=== PATIENT | female | born 1940 | race Caucasian/White ===

== ENCOUNTER 2016-07-12 12:40 | Emergency (ER) | payer MEDICARE, BC ==
[~2016-07-12] VITALS: Ht 165.1 cm; Wt 72.7 kg
[~2016-07-12 12:40] MED LIST: AGGRENOX ER 251 CER PO; ARICEPT10 MG PO; ASPIRIN 32325 MG/TAB PO; CO ENZYME Q-1050 MG PO; CO Q-1010 MG; COENZYME Q-1050 MG PO; CRESTOR40 MG PO; DIPYRIDAMOLE25 MG PO; FLAGYL500 MG PO; LEVAQUIN 750MG750 M1 PO; LEVOXYL0.1 MG PO; LIPITOR20 MG PO; MELATONIN3 M1 PO; MULTIPLE VITAMI1 CAP PO; NORCO 325 MG-51 TAB PO; OYSTER CALCIUM500 M1 PO; OYSTER SHELL C500 M4 PO; PRILOSEC 20MG20 MG PO; PRINIVIL40 MG PO; VITAMIN B COMPL1 T16 PO; ZOCOR 40MG40 MG PO
[2016-07-12] MEDS ORDERED: SYNTHROID0.1 MG/TAB PO (12:53)
[2016-07-12] MEDS ORDERED: PRILOSEC 20MG20 MG PO (12:53)
[2016-07-12] MEDS ORDERED: AGGRENOX ER 251 CER PO (12:53)
[2016-07-12] MEDS ORDERED: PRINIVIL40 MG PO (12:54)
[2016-07-12] MEDS ORDERED: ARICEPT10 MG PO (12:54)
[2016-07-12 13:14] LABS: BASO % 0.6 % (0.0-2.0); EOS # 0.1 (0.0-0.7); EOS % 1.9 % (0-4.0); GRAN # 4.2 (1.4-6.5); GRAN % 78.8 % (42.2-75.2); HEMOGLOBIN 12.8 g/dl (12.5-16.0); LYMPH # 0.6 (1.2-3.4); LYMPH % 10.7 % (20.0-51.0); MEAN CELL VOLUME 86 fl (80.0-100.0); MEAN CORPUSCULAR HEMOGLOBIN 31 pg (27.0-31.0); MEAN CORPUSCULAR HGB CONC 36 g/dl (33.0-37.0); MEAN PLATELET VOLUME 10.2 fl (7.4-10.4); MONO # 0.4 (0.1-0.6); MONO % 6.7 % (1.7-9.3); PLATELET COUNT 380 K/mm3 (130-400); RED BLOOD COUNT 4.12 M/mm3 (4.10-5.30); REDCELL DISTRIBUTION WIDTH-CV 15.7 % (11.5-14.5); WHITE BLOOD COUNT 5.4 K/mm3 (4.8-10.8)
[2016-07-12 13:23] LABS: HEMATOCRIT 35.6 % (37.0-47.0)
[2016-07-12 13:36] LABS: PH 7 (5-8); SQUAMOUS EPITHELIAL None Seen /hpf; URINE APPEARANCE Clear; URINE BACTERIA None Seen /hpf; URINE BILIRUBIN Negative (NEGATIVE); URINE BLOOD Negative (NEGATIVE); URINE COLOR Straw; URINE GLUCOSE Negative (NEGATIVE); URINE KETONE Negative (NEGATIVE); URINE RBC 0-2 /hpf; URINE UROBILINOGEN Negative (NEGATIVE); URINE WBC None Seen /hpf
[2016-07-12 13:53] LABS: ADJUSTED CALCIUM 8.6 mg/dL (8.4-10.2); ALBUMIN 4.5 gm/dL (3.5-5.0); CREATININE, serum 0.65 mg/dL (0.52-1.25); POTASSIUM 3.9 mmol/L (3.4-5.0); TOTAL PROTEIN 6.6 gm/dL (6.4-8.2)
[2016-07-12 14:21] VITALS: TEMP 98.6
[2016-07-12 14:57] VITALS: BP 131/67; PULSE 67
== END 2016-07-12 14:59 | disposition home or self-care (01) ==
LOC: COL.ER 12:40
PROVIDERS: Emergency Medicine
DX: E86.0 Dehydration (principal); R11.10 Vomiting, unspecified; R19.7 Diarrhea, unspecified; I10 Essential (primary) hypertension; Z85.820 Personal history of malignant melanoma of skin; F03.90 Unspecified dementia, unspecified severity, without behavioral disturbance, psychotic disturbance, mood disturbance, and anxiety
CPT/HCPCS: J2405; J7030

== ENCOUNTER → 2016-07-14 | Outpatient (CLI) | payer MEDICARE, BC ==
[~2016-07-14] MED LIST changes: +NORVASC2.5 MG PO; +SYNTHROID0.1 MG/TAB PO
== END ==
LOC: COL.CARD 06:53
DX: R55 Syncope and collapse (principal)

== ENCOUNTER 2016-08-09 06:18 | Emergency (ER) | payer MEDICARE, BC ==
[~2016-08-09] VITALS: Ht 165.1 cm; Wt 75.0 kg
[~2016-08-09 06:18] MED LIST changes: -NORVASC2.5 MG PO
[2016-08-09 06:27] VITALS: TEMP 96.7
[2016-08-09 07:24] LABS: HEMATOCRIT 37.1 % (37.0-47.0); HEMOGLOBIN 13.3 g/dl (12.5-16.0); MEAN CELL VOLUME 85 fl (80.0-100.0); MEAN CORPUSCULAR HEMOGLOBIN 31 pg (27.0-31.0); MEAN CORPUSCULAR HGB CONC 36 g/dl (33.0-37.0); MEAN PLATELET VOLUME 10.8 fl (7.4-10.4); PLATELET COUNT 356 K/mm3 (130-400); RED BLOOD COUNT 4.35 M/mm3 (4.10-5.30); REDCELL DISTRIBUTION WIDTH-CV 15.6 % (11.5-14.5); WHITE BLOOD COUNT 5.5 K/mm3 (4.8-10.8)
[2016-08-09 07:25] LABS: INR 1.1 (0.8-3.0); PROTHROMBIN TIME 12.4 SECONDS (9.7-12.8)
[2016-08-09 07:28] LABS: ADD PATHOLOGY DIFF REVIEW NO; PARTIAL THROMBOPLASTIN TIME 27.7 SECONDS (26.0-37.0)
[2016-08-09 07:37] LABS: ADJUSTED CALCIUM 8.4 mg/dL (8.4-10.2); ALANINE AMINOTRANSFERASE 28 U/L (9-52); ALBUMIN 4.6 gm/dL (3.5-5.0); ALKALINE PHOSPHATASE 37 U/L (50-136); ANION GAP 14 mmol/L (7-16); BILIRUBIN,TOTAL 0.8 mg/dL (0.0-1.0); BLOOD UREA NITROGEN 14 mg/dL (7-17); CALCIUM 8.9 mg/dL (8.4-10.2); CARBON DIOXIDE 21 mmol/L (22-30); CHLORIDE 93 mmol/L (98-107); CREATININE, serum 0.66 mg/dL (0.52-1.25); GLUCOSE 130 mg/dL (74-106); POTASSIUM 3.4 mmol/L (3.4-5.0); SODIUM 128 mmol/L (137-145); TOTAL PROTEIN 6.5 gm/dL (6.4-8.2)
[2016-08-09 07:55] LABS: TROPONIN-I < 0.012 ng/mL (0.000-0.034)
[2016-08-09 08:02] LABS: PH 5 (5-8); SQUAMOUS EPITHELIAL 0-2 /hpf; URINE APPEARANCE Hazy; URINE BACTERIA None Seen /hpf; URINE BILIRUBIN Negative (NEGATIVE); URINE BLOOD Negative (NEGATIVE); URINE COLOR Amber; URINE GLUCOSE Negative (NEGATIVE); URINE KETONE Negative (NEGATIVE); URINE RBC 0-2 /hpf; URINE UROBILINOGEN Negative (NEGATIVE)
[2016-08-09 08:19] LABS: BAND 16 % (0-10); EOSINOPHIL 3 % (0-4); NEUTROPHILS 62 % (42.0-75.2); TOTAL CELLS COUNTED 100
[2016-08-09 08:20] LABS: PLATELET ESTIMATE NORMAL (NORMAL)
[2016-08-09 10:29] VITALS: BP 132/71; PULSE 72
== END 2016-08-09 10:32 | disposition short-term general hospital (02) ==
LOC: COL.ER 06:18
PROVIDERS: Emergency Medicine
DX: S06.5X0A Traumatic subdural hemorrhage without loss of consciousness, initial encounter (principal); R55 Syncope and collapse; I10 Essential (primary) hypertension; S00.31XA Abrasion of nose, initial encounter; W18.30XA Fall on same level, unspecified, initial encounter; Y92.009 Unspecified place in unspecified non-institutional (private) residence as the place of occurrence of the external cause; Z86.73 Personal history of transient ischemic attack (TIA), and cerebral infarction without residual deficits
CPT/HCPCS: J1953; J2405; J7030

== ENCOUNTER 2016-08-28 16:23 | Emergency (ER) | payer MEDICARE, BC ==
[~2016-08-28] VITALS: Ht 165.1 cm; Wt 72.7 kg
[2016-08-28 16:25] VITALS: TEMP 99.4
[2016-08-28 17:27] VITALS: BP 138/69; PULSE 84
[2016-08-28] MEDS ORDERED: NORVASC2.5 MG PO ×2 (17:34→17:55)
== END 2016-08-28 17:53 | disposition home or self-care (01) ==
LOC: COL.ER 16:23
DX: I62.00 Nontraumatic subdural hemorrhage, unspecified (principal); I10 Essential (primary) hypertension; M19.90 Unspecified osteoarthritis, unspecified site; Z85.820 Personal history of malignant melanoma of skin; Z86.73 Personal history of transient ischemic attack (TIA), and cerebral infarction without residual deficits; Z98.890 Other specified postprocedural states

== ENCOUNTER → 2016-12-05 | Outpatient (CLI) | payer MEDICARE, BC ==
[~2016-12-05] MED LIST changes: +NORVASC2.5 MG PO
== END ==
LOC: WCC 08:50
DX: L97.819 Non-pressure chronic ulcer of other part of right lower leg with unspecified severity (principal)
CPT/HCPCS: 17717; A6212; G0463

== ENCOUNTER → 2016-12-05 | Outpatient (CLI) | payer MEDICARE, BC | LOC: ZCOL.LAB 15:14 | DX: T63.301A Toxic effect of unspecified spider venom, accidental (unintentional), initial encounter (principal) ==

== ENCOUNTER → 2016-12-13 | Outpatient (CLI) | payer MEDICARE, BC | LOC: WCC 12:32 | DX: L97.819 Non-pressure chronic ulcer of other part of right lower leg with unspecified severity (principal); B99.9 Unspecified infectious disease | CPT/HCPCS: 13973; 17717; A6199; A6212; G0463 ==

== ENCOUNTER → 2017-05-03 | Outpatient (CLI) | payer MEDICARE, BC | LOC: COL.CARD 12:30 | DX: R55 Syncope and collapse (principal) ==

== ENCOUNTER → 2017-05-09 | Outpatient (CLI) | payer MEDICARE, BC | LOC: COL.RAD 14:31 | DX: I62.03 Nontraumatic chronic subdural hemorrhage (principal); G93.89 Other specified disorders of brain ==

== ENCOUNTER → 2017-06-15 | Outpatient (CLI) | payer MEDICARE, BC | LOC: COL.VAS 09:03 | DX: I65.23 Occlusion and stenosis of bilateral carotid arteries (principal); R16.2 Hepatomegaly with splenomegaly, not elsewhere classified; R18.8 Other ascites; K76.9 Liver disease, unspecified; K82.9 Disease of gallbladder, unspecified ==

== ENCOUNTER 2017-06-17 12:46 | Inpatient (IN) | payer MEDICARE, BC ==
[~2017-06-17] VITALS: Ht 165.1 cm; Wt 73.8 kg
[2017-06-17] MEDS ORDERED: ALDACTONE 25MG25 M1 PO (13:10)
[2017-06-17] MEDS ORDERED: ARICEPT10 MG PO (13:12)
[2017-06-17] MEDS ORDERED: KEPPRA 500MG500 MG PO (13:24)
[2017-06-17] MEDS ORDERED: NORVASC 5MG5 MG/TAB PO (13:25)
[2017-06-17 13:33] LABS: BASO # 0.2 (0.0-0.2); BASO % 1.4 % (0.0-2.0); EOS # 0.2 (0.0-0.7); EOS % 1.7 % (0-4.0); GRAN # 8.5 (1.4-6.5); GRAN % 78.5 % (42.2-75.2); HEMOGLOBIN 17.8 g/dl (12.5-16.0); LYMPH # 1.1 (1.2-3.4); LYMPH % 9.7 % (20.0-51.0); MEAN CELL VOLUME 82 fl (80.0-100.0); MEAN CORPUSCULAR HEMOGLOBIN 26 pg (27.0-31.0); MEAN CORPUSCULAR HGB CONC 32 g/dl (33.0-37.0); MONO # 0.9 (0.1-0.6); MONO % 7.8 % (1.7-9.3); PLATELET COUNT 173 K/mm3 (130-400); RED BLOOD COUNT 6.81 M/mm3 (4.10-5.30); REDCELL DISTRIBUTION WIDTH-CV 21.7 % (11.5-14.5)
[2017-06-17 13:36] LABS: HEMATOCRIT 55.9 % (37.0-47.0)
[2017-06-17 13:38] LABS: INR 1.3 (0.8-3.0); PROTHROMBIN TIME 14.8 SECONDS (9.7-12.8)
[2017-06-17 13:43] LABS: ALBUMIN 3.8 gm/dL (3.5-5.0); BILIRUBIN,TOTAL 2.2 mg/dL (0.0-1.0); CALCIUM 8.9 mg/dL (8.4-10.2); CREATININE, serum 0.59 mg/dL (0.52-1.25); POTASSIUM 3.4 mmol/L (3.4-5.0); TOTAL PROTEIN 6.2 gm/dL (6.4-8.2)
[2017-06-17 13:57] LABS: TROPONIN-I 0.057 ng/mL (0.000-0.034)
[2017-06-17 15:35] VITALS: BP 135/80; PULSE 100; TEMP 98.1
[2017-06-17 19:23] VITALS: BP 136/81; PULSE 105; TEMP 98.1
[2017-06-17 23:16] VITALS: BP 143/76; PULSE 100; TEMP 98.5
[2017-06-18 04:13] VITALS: BP 150/72; PULSE 91; TEMP 98.4
[2017-06-18 07:02] LABS: BASO # 0.1 (0.0-0.2); BASO % 0.9 % (0.0-2.0); EOS # 0.1 (0.0-0.7); EOS % 1.4 % (0-4.0); GRAN # 6.3 (1.4-6.5); HEMATOCRIT 49.2 % (37.0-47.0); LYMPH % 12.2 % (20.0-51.0); MEAN CELL VOLUME 80 fl (80.0-100.0); MEAN CORPUSCULAR HGB CONC 32 g/dl (33.0-37.0); MONO # 0.6 (0.1-0.6); MONO % 6.8 % (1.7-9.3); PLATELET COUNT 152 K/mm3 (130-400); RED BLOOD COUNT 6.15 M/mm3 (4.10-5.30); REDCELL DISTRIBUTION WIDTH-CV 21.2 % (11.5-14.5)
[2017-06-18 07:06] LABS: HEMOGLOBIN 15.6 g/dl (12.5-16.0); MEAN CORPUSCULAR HEMOGLOBIN 25 pg (27.0-31.0)
[2017-06-18 07:07] LABS: BILIRUBIN,TOTAL 1.5 mg/dL (0.0-1.0); CALCIUM 8.3 mg/dL (8.4-10.2); CREATININE, serum 0.62 mg/dL (0.52-1.25)
[2017-06-18 07:18] VITALS: BP 143/79; PULSE 57; TEMP 98.5
[2017-06-18] MEDS ORDERED: NAMENDA 10MG TA10 MG PO (11:51)
[2017-06-18 11:55] VITALS: BP 132/76; PULSE 91; TEMP 98.2
[2017-06-18 15:17] VITALS: BP 137/81; PULSE 93; TEMP 98.5
[2017-06-18 18:01] LABS: INR 1.4 (0.8-3.0); PROTHROMBIN TIME 16.3 SECONDS (9.7-12.8)
[2017-06-18 19:01] LABS: HEPATITIS A ANTIBODY-IGM Negative (()); HEPATITIS B SURFACE ANTIBODY <2.0 (()); HEPATITIS B SURFACE ANTIGEN Negative (())
[2017-06-18 19:18] VITALS: BP 145/79; PULSE 96; TEMP 98.4
[2017-06-18 23:11] VITALS: BP 141/95; PULSE 94; TEMP 98.6
[2017-06-19 03:43] VITALS: BP 149/78; PULSE 92; TEMP 98.3
[2017-06-19 06:09] LABS: BASO # 0.1 (0.0-0.2); BASO % 0.8 % (0.0-2.0); EOS # 0.1 (0.0-0.7); EOS % 1.5 % (0-4.0); GRAN # 6.7 (1.4-6.5); GRAN % 77.5 % (42.2-75.2); HEMATOCRIT 49.5 % (37.0-47.0); HEMOGLOBIN 15.8 g/dl (12.5-16.0); LYMPH # 1.1 (1.2-3.4); LYMPH % 12.5 % (20.0-51.0); MEAN CELL VOLUME 81 fl (80.0-100.0); MEAN CORPUSCULAR HEMOGLOBIN 26 pg (27.0-31.0); MEAN CORPUSCULAR HGB CONC 32 g/dl (33.0-37.0); MONO # 0.6 (0.1-0.6); PLATELET COUNT 182 K/mm3 (130-400); RED BLOOD COUNT 6.08 M/mm3 (4.10-5.30); REDCELL DISTRIBUTION WIDTH-CV 21.7 % (11.5-14.5)
[2017-06-19 06:12] LABS: ALBUMIN 2.9 gm/dL (3.5-5.0); BILIRUBIN,TOTAL 1.5 mg/dL (0.0-1.0); CALCIUM 8.2 mg/dL (8.4-10.2); CREATININE, serum 0.64 mg/dL (0.52-1.25); POTASSIUM 3.6 mmol/L (3.4-5.0); TOTAL PROTEIN 4.8 gm/dL (6.4-8.2)
[2017-06-19 07:19] VITALS: BP 149/78; PULSE 81; TEMP 98.5
[2017-06-19 10:02] LABS: PERITONEAL -POLYMORPHONUCLEAR 13.8 % (0-25); PERITONEAL FLUID RBC 0 /mm3 (0-0)
[2017-06-19 11:16] VITALS: BP 128/68; PULSE 91; TEMP 98.6
[2017-06-19 15:35] VITALS: BP 124/75; PULSE 94; TEMP 98.2
[2017-06-19 19:17] VITALS: BP 141/87; PULSE 99; TEMP 98.2
[2017-06-20 00:19] VITALS: BP 129/72; PULSE 91; TEMP 98.7
[2017-06-20 03:45] VITALS: BP 125/76; PULSE 88; TEMP 98.5
[2017-06-20 06:17] LABS: BASO # 0.1 (0.0-0.2); EOS # 0.2 (0.0-0.7); EOS % 1.5 % (0-4.0); GRAN # 7.9 (1.4-6.5); GRAN % 79.5 % (42.2-75.2); HEMATOCRIT 50.4 % (37.0-47.0); HEMOGLOBIN 16.4 g/dl (12.5-16.0); LYMPH % 10.4 % (20.0-51.0); MEAN CELL VOLUME 80 fl (80.0-100.0); MEAN CORPUSCULAR HEMOGLOBIN 26 pg (27.0-31.0); MEAN CORPUSCULAR HGB CONC 33 g/dl (33.0-37.0); MONO # 0.7 (0.1-0.6); MONO % 6.7 % (1.7-9.3); PLATELET COUNT 142 K/mm3 (130-400); RED BLOOD COUNT 6.29 M/mm3 (4.10-5.30); REDCELL DISTRIBUTION WIDTH-CV 21.7 % (11.5-14.5)
[2017-06-20 06:26] LABS: CALCIUM 8.2 mg/dL (8.4-10.2); CREATININE, serum 0.77 mg/dL (0.52-1.25); POTASSIUM 3.6 mmol/L (3.4-5.0)
[2017-06-20 07:30] VITALS: BP 132/80; PULSE 93; TEMP 98.3
[2017-06-20] MEDS ORDERED: COREG 3.123.125 MG/T PO (09:23)
[2017-06-20] MEDS ORDERED: LASIX 20MG TABL20 MG PO (09:24)
== END 2017-06-20 11:22 | disposition home or self-care (01) | DRG 433 ==
LOC: COL.ER 12:46 → MEDICAL 14:50
PROVIDERS: Emergency Medicine; Internal Medicine; Internal Medicine Gastroenterology; Physician Assistant
PROC: 0W9G3ZZ Drainage of Peritoneal Cavity, Percutaneous Approach (ICD-10-PCS; principal; 2017-06-19)
DX: K70.31 Alcoholic cirrhosis of liver with ascites (principal); K76.6 Portal hypertension; F03.90 Unspecified dementia, unspecified severity, without behavioral disturbance, psychotic disturbance, mood disturbance, and anxiety; E87.6 Hypokalemia; E03.9 Hypothyroidism, unspecified; E78.5 Hyperlipidemia, unspecified; Z86.73 Personal history of transient ischemic attack (TIA), and cerebral infarction without residual deficits
CPT/HCPCS: OP; 87522; 99223-AI; 99232-AI; 99233-AI; J1940; Q9967

== ENCOUNTER 2017-07-04 11:35 | Observation (INO) | payer MEDICARE, BC ==
[~2017-07-04] VITALS: Ht 165.1 cm; Wt 66.5 kg
[~2017-07-04 11:35] MED LIST changes: +ALDACTONE 25MG25 M1 PO; +COREG 3.123.125 MG/T PO; +KEPPRA 500MG500 MG PO; +LASIX 20MG TABL20 MG PO; +NAMENDA 10MG TA10 MG PO; +NORVASC 5MG5 MG/TAB PO
[2017-07-04 12:27] VITALS: BP 125/85; PULSE 80
[2017-07-04 12:36] LABS: BASO # 0.1 (0.0-0.2); BASO % 1.1 % (0.0-2.0); EOS # 0.2 (0.0-0.7); EOS % 2.2 % (0-4.0); GRAN # 8.7 (1.4-6.5); GRAN % 80.5 % (42.2-75.2); HEMOGLOBIN 17.3 g/dl (12.5-16.0); LYMPH # 1.1 (1.2-3.4); LYMPH % 9.9 % (20.0-51.0); MEAN CELL VOLUME 79 fl (80.0-100.0); MEAN CORPUSCULAR HEMOGLOBIN 25 pg (27.0-31.0); MEAN CORPUSCULAR HGB CONC 32 g/dl (33.0-37.0); MONO # 0.6 (0.1-0.6); MONO % 5.9 % (1.7-9.3); PLATELET COUNT 238 K/mm3 (130-400); RED BLOOD COUNT 6.86 M/mm3 (4.10-5.30); REDCELL DISTRIBUTION WIDTH-CV 21.4 % (11.5-14.5)
[2017-07-04 12:38] LABS: HEMATOCRIT 54.5 % (37.0-47.0)
[2017-07-04 12:45] LABS: ALANINE AMINOTRANSFERASE 34 U/L (9-52); ALBUMIN 3.8 gm/dL (3.5-5.0); ALKALINE PHOSPHATASE 62 U/L (50-136); ANION GAP 14 mmol/L (7-16); AST,SGOT 36 U/L (15-37); BILIRUBIN,TOTAL 0.9 mg/dL (0.0-1.0); BLOOD UREA NITROGEN 13 mg/dL (7-17); CALCIUM 9.2 mg/dL (8.4-10.2); CARBON DIOXIDE 25 mmol/L (22-30); CHLORIDE 102 mmol/L (98-107); CREATININE, serum 0.77 mg/dL (0.52-1.25); GLUCOSE 101 mg/dL (74-106); MAGNESIUM 2.2 mg/dL (1.6-2.3); SODIUM 141 mmol/L (137-145); TOTAL PROTEIN 6.3 gm/dL (6.4-8.2)
[2017-07-04 12:49] LABS: INR 1.2 (0.8-3.0); PROTHROMBIN TIME 14.1 SECONDS (9.7-12.8)
[2017-07-04 12:52] LABS: PARTIAL THROMBOPLASTIN TIME 45.5 SECONDS (26.0-37.0)
[2017-07-04 13:02] LABS: ALCOHOL(ethanol),MEDICAL < 10 mg/dL
[2017-07-04 13:03] LABS: TROPONIN-I 0.321 ng/mL (0.000-0.034)
[2017-07-04] MEDS ORDERED: NORVASC2.5 MG PO (13:58)
[2017-07-04] MEDS ORDERED: LEVOXYL0.1 MG PO (13:59)
[2017-07-04] MEDS ORDERED: KEPPRA 500MG500 MG PO (13:59)
[2017-07-04] MEDS ORDERED: PRINIVIL40 MG PO (13:59)
[2017-07-04] MEDS ORDERED: NAMENDA 10MG TA10 MG PO (14:00)
[2017-07-04] MEDS ORDERED: PRILOSEC 20MG20 MG PO (14:00)
[2017-07-04] MEDS ORDERED: ALDACTONE 25MG25 M1 PO (14:00)
[2017-07-04] MEDS ORDERED: COREG 3.123.125 MG/T PO (14:00)
[2017-07-04] MEDS ORDERED: LASIX 20MG TABL20 MG PO (14:01)
[2017-07-04 18:48] VITALS: BP 139/79; PULSE 70; TEMP 98.5
[2017-07-04 19:10] VITALS: BP 144/79; PULSE 81; TEMP 98
[2017-07-04 23:20] VITALS: BP 120/68; PULSE 71; TEMP 98.1
[2017-07-05 03:43] VITALS: BP 137/75; PULSE 67; TEMP 97.6
[2017-07-05 08:55] VITALS: BP 131/69; PULSE 77; TEMP 98
[2017-07-05] MEDS ORDERED: COREG 3.123.125 MG/T PO (08:57)
[2017-07-05] MEDS ORDERED: ASPIRIN 81M81 MG/TA2 PO (08:57)
== END 2017-07-05 09:55 | disposition home or self-care (01) ==
LOC: COL.ER 11:35 → MEDICAL 13:47
PROVIDERS: Emergency Medicine
DX: K70.31 Alcoholic cirrhosis of liver with ascites (principal); K92.1 Melena; R63.0 Anorexia; I08.3 Combined rheumatic disorders of mitral, aortic and tricuspid valves; I11.0 Hypertensive heart disease with heart failure; I50.30 Unspecified diastolic (congestive) heart failure; R53.81 Other malaise; F03.90 Unspecified dementia, unspecified severity, without behavioral disturbance, psychotic disturbance, mood disturbance, and anxiety; E03.9 Hypothyroidism, unspecified; E78.5 Hyperlipidemia, unspecified; Z90.710 Acquired absence of both cervix and uterus; Z86.73 Personal history of transient ischemic attack (TIA), and cerebral infarction without residual deficits
CPT/HCPCS: G0378